=== PATIENT | female | born 1960 | race Caucasian/White ===

== ENCOUNTER 2017-06-02 21:23 | Emergency (ER) | payer SELFPAY | END 2017-06-02 22:00 | disposition home or self-care (01) | LOC: MADERS 21:23 | DX: F43.0 Acute stress reaction (principal); F41.9 Anxiety disorder, unspecified; Z79.899 Other long term (current) drug therapy | CPT/HCPCS: 99284 ==

== ENCOUNTER 2024-12-19 15:19 | Emergency (ER) | payer SELFPAY | END 2024-12-19 16:34 | disposition home or self-care (01) | LOC: MADERS 15:19 | DX: M79.642 Pain in left hand (principal); F25.9 Schizoaffective disorder, unspecified; Z59.71 Insufficient health insurance coverage | CPT/HCPCS: 99283 ==